=== PATIENT | male | born 1985 | race American Indian/Alaskan Native ===

== ENCOUNTER 2017-05-18 16:25 | Emergency (ER) | payer OTHER ==
[2017-05-18] MEDS ORDERED: Sodium Chloride 0.9% 1,000 ML IV ONE (16:29)
--- NOTE | 2017-05-18 16:49 | EDM.PDOC ---
ED HPI GENERAL MEDICAL PROBLEM - General Chief Complaint: General Stated Complaint: SUICIDAL Time Seen by Provider: 05/18/17 16:29 Source of Information: Reports: Patient History Limitations: Reports: No Limitations - History of Present Illness INITIAL COMMENTS - FREE TEXT/NARRATIVE: HISTORY AND PHYSICAL: History of present illness: Patient is a 32-year-old male who presents to the emergency room after taking a large amount of caffeine. He states he presented to [facility] to see his primary care doctor for management of his bipolar depression. He currently is not on any medications as this appointment he was planning on getting new medications. He proceeded to tell the provider that he had taken 24 tablets of ephedra/caffeine and caffeine in liquid form. He states that this is normal for him and he will do this "when I have the money". He did this with the intent of "getting energy". He has no thoughts of self-harm or harming others. Patient currently has no systemic complaints and states that "everything is given a come back fine"- referring to his labs and evaluation today. Denies any headache, change in vision, shortness of breath, chest pain, abdominal pain, nausea, vomiting or diarrhea. No bowel or bladder change or concerns. Denies any palpitations, diaphoresis or jitters. Review of systems: As per history of present illness and below otherwise all systems reviewed and negative. Past medical history: As per history of present illness and as reviewed below otherwise noncontributory. Surgical history: As per history of present illness and as reviewed below otherwise noncontributory. Social history: No reported history of drug or alcohol abuse. Family history: As per history of present illness and as reviewed below otherwise noncontributory. Physical exam: Gen.: Well-developed and well-nourished 32-year-old male. Flat affect, alert and oriented. Nontoxic appearing. HEENT: Atraumatic, normocephalic, pupils reactive, negative for conjunctival pallor or scleral icterus, mucous membranes moist, throat clear, neck supple, nontender, trachea midline. Lungs: Clear to auscultation, breath sounds equal bilaterally, chest nontender. Heart: S1S2, regular rate and rhythm without overt murmurs Abdomen: Soft, obese, nondistended, nontender. Negative for masses or hepatosplenomegaly. Negative for costovertebral tenderness. Pelvis: Stable nontender. Genitourinary: Deferred. Rectal: Deferred. Extremities: Atraumatic, negative for cords or calf pain. Neurovascular unremarkable. Neuro: Awake, alert, oriented. Cranial nerves II through XII unremarkable. Cerebellum unremarkable. Motor and sensory unremarkable throughout. Exam nonfocal. Poison control was contacted by staff. They have no recommendations if the patient is not tachycardic or hypertensive. The patient is agreeable to receiving resume work and IV fluids at this time. We'll continue to monitor his vitals. She's vital signs have been normal throughout his visit here through the ER. Due to the consumption of caffeine, and the amount that he states, I did offer him admission. He declines at this time. Vitals have been stable along with normal lab results. He is alert and oriented. Will be discharged to home. Did encourage him to follow up with Dr. Myers sooner. We discussed limiting the use of his caffeine and other stimulants. He voices understanding and is agreeable to plan of care. Diagnostics: CBC, CMP, troponin, EKG Therapeutics: The fluid, dietary server Impression: Excessive caffeine consumption Plan: 1. Limit your use of caffeine and stimulants. 2. Continue to follow up with Dr. Myers for your mental health needs. 3. Please follow up with her primary caregiver in the next 1-2 days. Return to the ED as needed and as we discussed. Definitive disposition and diagnosis as appropriate pending reevaluation and review of above. Onset: Today Duration: Minutes: - Related Data Allergies Allergy/AdvReac Type Severity Reaction Status Date / Time No Known Allergies Allergy Verified 05/18/17 16:35 Home Meds: Home Meds . [No Known Home Meds] 05/18/17 [History] Past Medical History Psychiatric History: Reports: Bipolar, Depression - Infectious Disease History Infectious Disease History: Reports: Chicken Pox Social & Family History - Family History Family Medical History: Noncontributory - Tobacco Use Smoking Status *Q: Current Every Day Smoker Years of Tobacco use: 20 Packs/Tins Daily: 1 - Caffeine Use Caffeine Use: Reports: Coffee, Energy Drinks, Soda, Other Other Caffeine Use: caffeine pills - Recreational Drug Use Recreational Drug Use: No ED ROS GENERAL - Review of Systems Review Of Systems: ROS reveals no pertinent complaints other than HPI. ED EXAM, GENERAL - Physical Exam Exam: See Below (See dictation) Course - Vital Signs Last Recorded V/S: Last Vital Signs Temp 98.7 F 05/18/17 16:31 Pulse 77 05/18/17 16:31 Resp 18 05/18/17 16:31 BP 169/84 H 05/18/17 16:31 Pulse Ox 95 05/18/17 16:31 - Orders/Labs/Meds Orders: Active Orders 24 hr Category Date Time Status Cardiac Monitoring [RC] . DIRECTED Care 05/18/17 16:30 Active EKG Documentation Completion [RC] STAT Care 05/18/17 16:30 Active Labs: Laboratory Tests 05/18/17 05/18/17 Range/Units 16:52 16:52 WBC 13.97 H (4.0-11.0) K/uL RBC 5.35 (4.50-5.90) M/uL Hgb 16.3 (13.0-17.0) g/dL Hct 46.6 (38.0-50.0) % MCV 87.1 (80.0-98.0) fL MCH 30.5 (27.0-32.0) pg MCHC 35.0 (31.0-37.0) g/dL RDW Std Deviation 42.8 (28.0-62.0) fl RDW Coeff of Yifan 14 (11.0-15.0) % Plt Count 349 (150-400) K/uL MPV 9.90 (7.40-12.00) fL Neut % (Auto) 72.6 (48.0-80.0) % Lymph % (Auto) 20.8 (16.0-40.0) % [place] % (Auto) 5.4 (0.0-15.0) % Eos % (Auto) 0.9 (0.0-7.0) % Baso % (Auto) 0.3 (0.0-1.5) % Neut # (Auto) 10.2 H (1.4-5.7) K/uL Lymph # (Auto) 2.9 H (0.6-2.4) K/uL [place] # (Auto) 0.8 (0.0-0.8) K/uL Eos # (Auto) 0.1 (0.0-0.7) K/uL Baso # (Auto) 0.0 (0.0-0.1) K/uL Nucleated RBC % 0.0 /100WBC Nucleated RBCs # 0 K/uL Sodium 143 (136-146) mmol/L Potassium 3.7 (3.5-5.1) mmol/L Chloride 110 (98-110) mmol/L Carbon Dioxide 19 L (21-31) mmol/L BUN 7 (6.0-23.0) mg/dL Creatinine 1.0 (0.6-1.5) mg/dL Est Cr Clr Drug Dosing 114.00 mL/min Estimated GFR (MDRD) > 60.0 ml/min Glucose 87 (60-110) mg/dL Calcium 9.6 (8.8-10.8) mg/dL Total Bilirubin 0.3 (0.1-1.5) mg/dL AST 20 (5-40) IU/L ALT 20 (8-54) IU/L Alkaline Phosphatase 112 (40-150) Troponin I < 0.10 (0.0-0.29) NG/ML Total Protein 8.5 H (6.0-8.0) g/dL Albumin 4.8 (3.5-5.0) g/dL Globulin 3.7 H (2.0-3.5) g/dL Albumin/Globulin Ratio 1.3 (1.3-2.8) Meds: Medications Discontinued Medications Generic Name Dose Route Start Last Admin Trade Name Freq PRN Reason Stop Dose Admin Sodium Chloride 1,000 mls @ 999 mls/hr 05/18/17 16:29 05/18/17 16:53 Normal Saline IV 05/18/17 17:29 999 mls/hr STAT ONE Administration Departure - Departure Time of Disposition: 17:44 Disposition: Home, Self-Care 01 Clinical Impression: Excessive caffeine intake - Discharge Information Referrals: PCP,None [Primary Care Provider] - Forms: ED Department Discharge Additional Instructions: My general discharge The following information is given to patients seen in the emergency department who are being discharged to home. This information is to outline your options for follow-up care. We provide all patients seen in our emergency department with a follow-up referral. The need for follow-up, as well as the timing and circumstances, are variable depending upon the specifics of your emergency department visit. If you don't have a primary care physician on staff, we will provide you with a referral. We always advise you to contact your personal physician following an emergency department visit to inform them of the circumstance of the visit and for follow-up with them and/or the need for any referrals to a consulting specialist. The emergency department will also refer you to a specialist when appropriate. This referral assures that you have the opportunity for follow-up care with a specialist. All of these measure are taken in an effort to provide you with optimal care, which includes your follow-up. Under all circumstances we always encourage you to contact your private physician who remains a resource for coordinating your care. When calling for follow-up care, please make the office aware that this follow-up is from your recent emergency room visit. If for any reason you are refused follow-up, please contact the [facility] Emergency Department at and asked to speak to the emergency department charge nurse. [facility] [address] [place] [id number] 1. Limit your use of caffeine and stimulants. 2. Continue to follow up with Dr. Myers for your mental health needs. 3. Please follow up with her primary caregiver in the next 1-2 days. Return to the ED as needed and as we discussed. - My Orders Last 24 Hours: My Active Orders 05/18/17 16:30 Cardiac Monitoring [RC] . DIRECTED EKG Documentation Completion [RC] STAT - Assessment/Plan Last 24 Hours: My Active Orders 05/18/17 16:30 Cardiac Monitoring [RC] . DIRECTED EKG Documentation Completion [RC] STAT
[2017-05-18 17:24] LABS: CHLORIDE,CL 110 mmol/L (98-110); SODIUM,NA 143 mmol/L (136-146)
== END 2017-05-18 18:00 | disposition home or self-care (01) ==
LOC: MW.ED 16:25
DX: T43.611A Poisoning by caffeine, accidental (unintentional), initial encounter (principal); F31.9 Bipolar disorder, unspecified; F17.210 Nicotine dependence, cigarettes, uncomplicated
CPT/HCPCS: 80053; 84484; 85025; 93005; 96360; 99284; J7040

== ENCOUNTER 2017-08-31 05:33 | Emergency (ER) | payer SELFPAY ==
--- NOTE | 2017-08-31 06:33 | EDM.PDOC ---
ED HPI GENERAL MEDICAL PROBLEM - General Chief Complaint: General Stated Complaint: MEDICAL CLEARANCE Time Seen by Provider: 08/31/17 06:30 - History of Present Illness INITIAL COMMENTS - FREE TEXT/NARRATIVE: HISTORY AND PHYSICAL: History of present illness: Patient 32-year-old male in custody of law enforcement presents for medical clearance Review of systems: As per history of present illness and below otherwise all systems reviewed and negative. Past medical history: As per history of present illness and as reviewed below otherwise noncontributory. Surgical history: As per history of present illness and as reviewed below otherwise noncontributory. Social history: No reported history of drug or alcohol abuse. Family history: As per history of present illness and as reviewed below otherwise noncontributory. Physical exam: HEENT: Atraumatic, normocephalic, pupils reactive, negative for conjunctival pallor or scleral icterus, mucous membranes moist, throat clear, neck supple, nontender, trachea midline. Lungs: Clear to auscultation, breath sounds equal bilaterally, chest nontender. Heart: S1S2, regular, negative for clicks, rubs, or JVD. Abdomen: Soft, nondistended, nontender. Negative for masses or hepatosplenomegaly. Negative for costovertebral tenderness. Pelvis: Stable nontender. Genitourinary: Deferred. Rectal: Deferred. Extremities: Atraumatic, negative for cords or calf pain. Neurovascular unremarkable. Neuro: Awake, alert, oriented. Cranial nerves II through XII unremarkable. Cerebellum unremarkable. Motor and sensory unremarkable throughout. Exam nonfocal. Diagnostics: None Therapeutics: None Impression: 1 medically clear for incarceration Definitive disposition and diagnosis as appropriate pending reevaluation and review of above. - Related Data Allergies Allergy/AdvReac Type Severity Reaction Status Date / Time No Known Allergies Allergy Verified 05/18/17 16:35 Home Meds: Home Meds . [No Known Home Meds] 05/18/17 [History] Past Medical History HEENT History: Reports: None Cardiovascular History: Reports: None Respiratory History: Reports: None Gastrointestinal History: Reports: None Genitourinary History: Reports: None Musculoskeletal History: Reports: None Neurological History: Reports: None Psychiatric History: Reports: Bipolar, Depression Endocrine/Metabolic History: Reports: None Hematologic History: Reports: None Oncologic (Cancer) History: Reports: None Dermatologic History: Reports: None - Infectious Disease History Infectious Disease History: Reports: None - Past Surgical History Cardiovascular Surgical History: Reports: None GI Surgical History: Reports: None Male Surgical History: Reports: None Social & Family History - Family History Family Medical History: Noncontributory - Tobacco Use Smoking Status *Q: Current Every Day Smoker Years of Tobacco use: 15 Packs/Tins Daily: 1 - Caffeine Use Caffeine Use: Reports: Coffee, Energy Drinks, Soda, Other Other Caffeine Use: caffeine pills - Recreational Drug Use Recreational Drug Use: Yes Recreational Drug Type: Reports: Methamphetamine, Other (see below) Other Recreational Drug Type: Patient reports hx of "pill" use ED ROS GENERAL - Review of Systems Review Of Systems: ROS reveals no pertinent complaints other than HPI. ED EXAM, GENERAL - Physical Exam Exam: See Below (See dictation) Course - Vital Signs Last Recorded V/S: Last Vital Signs Temp 36.2 C 08/31/17 05:33 Pulse 85 08/31/17 05:33 Resp 16 08/31/17 05:33 BP 110/69 08/31/17 05:33 Pulse Ox 97 08/31/17 05:33 Departure - Departure Time of Disposition: 06:32 Disposition: Home, Self-Care 01 Condition: Good Clinical Impression: Medical clearance for incarceration - Discharge Information Referrals: PCP,None [Primary Care Provider] - Additional Instructions: The following information is given to patients seen in the emergency department who are being discharged to home. This information is to outline your options for follow-up care. We provide all patients seen in our emergency department with a follow-up referral. The need for follow-up, as well as the timing and circumstances, are variable depending upon the specifics of your emergency department visit. If you don't have a primary care physician on staff, we will provide you with a referral. We always advise you to contact your personal physician following an emergency department visit to inform them of the circumstance of the visit and for follow-up with them and/or the need for any referrals to a consulting specialist. The emergency department will also refer you to a specialist when appropriate. This referral assures that you have the opportunity for followup care with a specialist. All of these measure are taken in an effort to provide you with optimal care, which includes your followup. Under all circumstances we always encourage you to contact your private physician who remains a resource for coordinating your care. When calling for followup care, please make the office aware that this follow-up is from your recent emergency room visit. If for any reason you are refused follow-up, please contact the [facility] emergency department at and asked to speak to the emergency department charge nurse. Follow-up primary medical doctor return as needed as discussed
== END 2017-08-31 06:41 | disposition home or self-care (01) ==
LOC: MW.ED 05:33
DX: Z02.89 Encounter for other administrative examinations (principal); F31.9 Bipolar disorder, unspecified; F17.210 Nicotine dependence, cigarettes, uncomplicated
CPT/HCPCS: 99282

== ENCOUNTER 2019-04-12 21:14 | Emergency (ER) | payer SELFPAY ==
--- NOTE | 2019-04-12 21:47 | CR ---
Indication: Cough. Technique: Single AP portable view of the chest. Comparison: None Findings: Heart is normal in size. The lungs are clear. No infiltrate, pleural effusion, or pneumothorax is identified. Impression: No acute cardiopulmonary process Dictated by Brenda Abad MD @ Apr 12 2019 9:45PM Signed by Dr. Brenda Abad @ Apr 12 2019 9:46PM
--- NOTE | 2019-04-12 22:03 | EDM.PDOC ---
ED HPI GENERAL MEDICAL PROBLEM - General Chief Complaint: Respiratory Problem Stated Complaint: HARD TIME BREATHING,COLD SYMPTOMS Time Seen by Provider: 04/12/19 21:58 - History of Present Illness INITIAL COMMENTS - FREE TEXT/NARRATIVE: HISTORY AND PHYSICAL: History of present illness: Patient 34-year-old male presents a concern of cough intermittently productive and congestion over last several days he is a smoker and is concerned about bronchitis?no shortness of breath fever chills nausea vomiting Review of systems: As per history of present illness and below otherwise all systems reviewed and negative. Past medical history: As per history of present illness and as reviewed below otherwise noncontributory. Surgical history: As per history of present illness and as reviewed below otherwise noncontributory. Social history: No reported history of drug or alcohol abuse. Family history: As per history of present illness and as reviewed below otherwise noncontributory. Physical exam: HEENT: Atraumatic, normocephalic, pupils reactive, negative for conjunctival pallor or scleral icterus, mucous membranes moist, throat clear, neck supple, nontender, trachea midline. Lungs: Clear to auscultation, breath sounds equal bilaterally, chest nontender. Heart: S1S2, regular, negative for clicks, rubs, or JVD. Abdomen: Soft, nondistended, nontender. Negative for masses or hepatosplenomegaly. Negative for costovertebral tenderness. Pelvis: Stable nontender. Genitourinary: Deferred. Rectal: Deferred. Extremities: Atraumatic, negative for cords or calf pain. Neurovascular unremarkable. Neuro: Awake, alert, oriented. Cranial nerves II through XII unremarkable. Cerebellum unremarkable. Motor and sensory unremarkable throughout. Exam nonfocal. Diagnostics: Chest x-ray influenza screen Therapeutics: None Impression: #1 tracheobronchitis Definitive disposition and diagnosis as appropriate pending reevaluation and review of above. right back Pain Score (Numeric/FACES): 7 - Related Data Allergies Allergy/AdvReac Type Severity Reaction Status Date / Time No Known Allergies Allergy Verified 04/12/19 21:20 Home Meds: Home Meds . [No Known Home Meds] 05/18/17 [History] Past Medical History HEENT History: Reports: None Cardiovascular History: Reports: None Respiratory History: Reports: None Gastrointestinal History: Reports: None Genitourinary History: Reports: None Musculoskeletal History: Reports: None Neurological History: Reports: None Psychiatric History: Reports: Bipolar, Depression Other Psychiatric History: borederline personality Endocrine/Metabolic History: Reports: None Hematologic History: Reports: None Oncologic (Cancer) History: Reports: None Dermatologic History: Reports: None - Infectious Disease History Infectious Disease History: Reports: None - Past Surgical History Cardiovascular Surgical History: Reports: None GI Surgical History: Reports: None Male Surgical History: Reports: None Social & Family History - Family History Family Medical History: Noncontributory - Tobacco Use Smoking Status *Q: Current Every Day Smoker Years of Tobacco use: 15 Packs/Tins Daily: 1 - Caffeine Use Caffeine Use: Reports: Coffee, Energy Drinks, Soda, Other Other Caffeine Use: caffeine pills - Recreational Drug Use Recreational Drug Use: No ED ROS GENERAL - Review of Systems Review Of Systems: Comprehensive ROS is negative, except as noted in HPI. ED EXAM, GENERAL - Physical Exam Exam: See Below (Dictation) Course - Vital Signs Last Recorded V/S: Last Vital Signs Temp 36.4 C 04/12/19 21:20 Pulse 93 04/12/19 21:20 Resp 18 04/12/19 21:20 BP 144/83 H 04/12/19 21:20 Pulse Ox 100 04/12/19 21:20 Departure - Departure Time of Disposition: 22:02 Disposition: Home, Self-Care 01 Condition: Good Clinical Impression: Tracheobronchitis - Discharge Information Additional Instructions: The following information is given to patients seen in the emergency department who are being discharged to home. This information is to outline your options for follow-up care. We provide all patients seen in our emergency department with a follow-up referral. The need for follow-up, as well as the timing and circumstances, are variable depending upon the specifics of your emergency department visit. If you don't have a primary care physician on staff, we will provide you with a referral. We always advise you to contact your personal physician following an emergency department visit to inform them of the circumstance of the visit and for follow-up with them and/or the need for any referrals to a consulting specialist. The emergency department will also refer you to a specialist when appropriate. This referral assures that you have the opportunity for followup care with a specialist. All of these measure are taken in an effort to provide you with optimal care, which includes your followup. Under all circumstances we always encourage you to contact your private physician who remains a resource for coordinating your care. When calling for followup care, please make the office aware that this follow-up is from your recent emergency room visit. If for any reason you are refused follow-up, please contact the [facility] emergency department at and asked to speak to the emergency department charge nurse. [facility] [address] [place] [id number] Azithromycin albuterol as prescribed stop smoking follow-up primary medical doctor and/or clinic return as needed as discussed Sepsis Event Note - Evaluation Sepsis Screening Result: No Definite Risk - Focused Exam Vital Signs: Vital Signs Temp Pulse Resp BP Pulse Ox 04/12/19 21:20 36.4 C 93 18 144/83 H 100 Date Exam was Performed: 04/12/19 Time Exam was Performed: 21:59
== END 2019-04-12 22:18 | disposition home or self-care (01) ==
LOC: MW.ED 21:14
DX: J40 Bronchitis, not specified as acute or chronic (principal); F17.210 Nicotine dependence, cigarettes, uncomplicated
CPT/HCPCS: 71045; 71045-26; 87804; 99282; 99283-25